=== PATIENT | male | born 2000 | race Caucasian/White ===

== ENCOUNTER 2020-09-02 10:17 | Emergency (ER) | payer OTHER ==
[2020-09-02 11:23] LABS: CORONAVIRUS COVID-19 NAA NEGATIVE (NEGATIVE)
[2020-09-02] MEDS ORDERED: Azithromycin 250 MG Tab PO ONE (11:31)
[2020-09-02] MEDS ORDERED: Dexamethasone 4 MG Tab PO ONE (11:32)
--- NOTE | 2020-09-02 11:37 | EDM.PDOC ---
Scribed by Aleja Loo 09/02/20 1137 for Dante Killian MD ED HPI GENERAL MEDICAL PROBLEM - General Chief Complaint: ENT Problem Stated Complaint: [id number] SORE THROAT DIZZY Time Seen by Provider: 09/02/20 11:27 Source of Information: Reports: Patient, RN, RN Notes Reviewed History Limitations: Reports: No Limitations - History of Present Illness INITIAL COMMENTS - FREE TEXT/NARRATIVE: Patient presents to ED by POV with complaint of sore throat since Thursday. Admits to fever and chills. Pt denies cough, rash, or N/V. No known sick contacts. Onset Date: 08/29/20 Duration: Constant Location: Reports: Other (throat) Quality: Reports: Ache Severity: Moderate Improves with: Reports: None Worsens with: Reports: None Associated Symptoms: Reports: No Other Symptoms Throat Pain Score (Numeric/FACES): 6 - Related Data Allergies Allergy/AdvReac Type Severity Reaction Status Date / Time No Known Allergies Allergy Verified 09/02/20 10:42 Home Meds: Home Meds . [No Known Home Meds] 09/02/20 [History] ED ROS ENT - Review of Systems Review Of Systems: Comprehensive ROS is negative, except as noted in HPI. ED EXAM, ENT - Physical Exam Exam: See Below Exam Limited By: No Limitations General Appearance: Alert, WD/WN, No Apparent Distress Eye Exam: Bilateral Eye: EOMI, Normal Inspection, PERRL Ears: Normal External Exam, Normal Canal, Hearing Grossly Normal, Normal TMs Nose: Normal Inspection, Normal Mucousa, No Blood Mouth/Throat: Normal Gums, Normal Lips, Normal Teeth, Pharyngeal Erythema, Tonsillar Erythema, Tonsillar Exudates, Tonsillar Swelling. No: Tongue Swelling, Trismus, Uvular Deviation, Uvular Edema Head: Atraumatic, Normocephalic Neck: Normal Inspection, Supple, Non-Tender, Full Range of Motion Respiratory/Chest: No Respiratory Distress, Lungs Clear, Normal Breath Sounds, No Accessory Muscle Use, Chest Non-Tender Cardiovascular: Tachycardia GI/Abdominal: Normal Bowel Sounds, Soft, Non-Tender, No Organomegaly, No Distention, No Abnormal Bruit, No Mass (Male) Exam: Deferred Rectal (Males) Exam: Deferred Back: Normal Inspection, Full Range of Motion Extremities: Normal Inspection, Normal Range of Motion, Non-Tender, No Pedal Edema, Normal Capillary Refill Neurological: Alert, Oriented, CN II-XII Intact, Normal Cognition, Normal Gait, Normal Reflexes, No Motor/Sensory Deficits Psychiatric: Normal Affect, Normal Mood Skin: Warm, Dry, Intact, Normal Color, No Rash Course - Vital Signs Last Recorded V/S: Last Vital Signs Temp 101.1 F H 09/02/20 10:36 Pulse 97 09/02/20 10:36 Resp 20 09/02/20 10:36 BP 110/56 L 09/02/20 10:36 Pulse Ox 100 09/02/20 10:36 - Orders/Labs/Meds Orders: Active Orders 24 hr Category Date Time Status CULTURE STREP A CONFIRMATION [] Stat Lab 09/02/20 10:30 Results STREP SCRN A RAPID W CULT CONF [] Stat Lab 09/02/20 10:30 Results dexAMETHasone Med 09/02/20 11:32 Once 8 mg PO ONETIME ONE Medication Orders Azithromycin (Azithromycin 250 Mg Tab) 500 mg PO ONETIME ONE Stop: 09/02/20 11:32 Dexamethasone (Dexamethasone 4 Mg Tab) 8 mg PO ONETIME ONE Stop: 09/02/20 11:33 Labs: Laboratory Tests 09/02/20 Range/Units 10:30 Influenza Type A RNA Negative (NEGATIVE) Influenza Type B RNA Negative (NEGATIVE) SARS-CoV-2 RNA ([place]) Negative (NEGATIVE) Rapid strep: Negative. Meds: Medications Generic Name Dose Route Start Last Admin Trade Name Freq PRN Reason Stop Dose Admin Azithromycin 500 mg 09/02/20 11:31 Azithromycin 250 Mg Tab PO 09/02/20 11:32 ONETIME ONE Dexamethasone 8 mg 09/02/20 11:32 Dexamethasone 4 Mg Tab PO 09/02/20 11:33 ONETIME ONE Departure - Departure Time of Disposition: 11:34 Disposition: Home, Self-Care 01 Condition: Good Clinical Impression: Tonsillitis - Discharge Information *PRESCRIPTION DRUG MONITORING PROGRAM REVIEWED*: Not Applicable *COPY OF PRESCRIPTION DRUG MONITORING REPORT IN PATIENT CASSIDY: Not Applicable Instructions: Tonsillitis, [id number] Forms: ED Department Discharge Additional Instructions: Rx: Zithromax 500mg Frequent saltwater gargles until sore throat resolves. Sepsis Event Note (ED) - Evaluation Sepsis Screening Result: No Definite Risk - Focused Exam Vital Signs: Vital Signs Temp Pulse Resp BP Pulse Ox 09/02/20 10:36 101.1 F H 97 20 110/56 L 100 - My Orders Last 24 Hours: My Active Orders 09/02/20 10:30 CULTURE STREP A CONFIRMATION [RM] Stat STREP SCRN A RAPID W CULT CONF [RM] Stat 09/02/20 11:32 dexAMETHasone 8 mg PO ONETIME ONE - Assessment/Plan Last 24 Hours: My Active Orders 09/02/20 10:30 CULTURE STREP A CONFIRMATION [RM] Stat STREP SCRN A RAPID W CULT CONF [RM] Stat 09/02/20 11:32 dexAMETHasone 8 mg PO ONETIME ONE I have read and agree with the documentation that has been completed regarding this visit. By signing this record, I attest that the documentation was completed in my physical presence and is an accurate record of the encounter.
== END 2020-09-02 11:48 | disposition home or self-care (01) ==
LOC: DL.ED 10:17
DX: J03.90 Acute tonsillitis, unspecified (principal); Z20.822 Contact with and (suspected) exposure to COVID-19
CPT/HCPCS: 0240U; 87081; 87430; 99283; A9270; J8540

== ENCOUNTER 2021-06-24 11:39 | Emergency (ER) | payer OTHER ==
[2021-06-24 13:43] LABS: CORONAVIRUS COVID-19 NAA NEGATIVE (NEGATIVE)
== END 2021-06-24 17:17 | disposition left against medical advice (07) ==
LOC: DL.ED 11:39
DX: Z53.21 Procedure and treatment not carried out due to patient leaving prior to being seen by health care provider (principal); Z20.822 Contact with and (suspected) exposure to COVID-19
CPT/HCPCS: 0240U; 87081; 87430